=== PATIENT | female | born 1990 | race Two or more races ===

== ENCOUNTER 2017-03-15 19:59 | Emergency (ER) | payer BC ==
[2017-03-15] MEDS: 0.9 % SODIUM CHLORIDE 1,000 ML IV ONE (20:50)
[2017-03-15] MEDS ORDERED: 0.9 % SODIUM CHLORIDE 1,000 ML IV ONE (20:53)
[2017-03-15 20:57] LABS: BASOPHILS % 0.5 (0.0-1.5); EOSINOPHILS % 3.8 % (0.0-6.8); MEAN CORPUSCULAR VOLUME 93.5 fl (80.0-100.0); MONOCYTES % 3.9 % (0.0-11.0); NEUTROPHILS # 2.2 # k/uL (1.4-7.7)
[2017-03-15 21:00] LABS: eGFR (African) > 60; eGFR (Non-African) > 60
--- NOTE | 2017-03-15 21:55 | ED Physician Documentation ---
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 - ROS CONST: weakness EYES/ENT: none CVS/RESP: none GI/: nausea - PAST HX Past History: other (BPD, opiate dependence) Allergies/Adverse Reactions: Allergies Allergy/AdvReac Type Severity Reaction Status Date / Time No Known Allergies Allergy Verified 03/15/17 20:46 Home Medications: Ambulatory Orders Medication Instructions Recorded Aripiprazole [Abilify] 5 mg PO QDAY 03/15/17 Cyclobenzaprine HCl [Flexeril] 10 mg PO TID 03/15/17 Duloxetine HCl [Cymbalta] 20 mg PO QDAY 03/15/17 Hydroxyzine Pamoate [Vistaril] 50 mg PO TID 03/15/17 Lidocaine [Lidoderm] 1 patch TOP Q12 03/15/17 Mirtazapine [Remeron] 30 mg PO QDAY 03/15/17 Naltrexone HCl [Revia] 50 mg PO QDAY 03/15/17 - SOCIAL HX Smoking History: cigarettes Drug Use: other (opiates, marijuana, says she has tried all) - FAMILY HX Family History: No - VITAL SIGNS Vital Signs: Vital Signs Temp Pulse Resp BP Pulse Ox 98.2 F 83 16 95/55 99 03/15/17 20:00 03/15/17 20:00 03/15/17 20:00 03/15/17 20:00 03/15/17 20:00 - REVIEWED ASSESSMENTS Nursing Assessment Reviewed: Yes Vitals Reviewed: Yes Progress - Progress Progress: 1L NS, bolus 2150, says she feels better, ready to go home ED Results Lab/Radiology - Lab Results Lab Results: Lab Results 03/15/17 03/15/17 20:42 20:42 WBC 5.30 K/ul K/ul (4.00-12.00) RBC 4.16 M/ul M/ul (3.90-5.20) Hgb 13.3 g/dL g/dL (12.0-16.0) Hct 38.9 % % (34.5-46.5) MCV 93.5 fl fl (80.0-100.0) MCH 32.0 pg pg (28.0-34.0) MCHC 34.2 g/dL g/dL (30.0-36.0) RDW 12.7 % % (11.3-14.3) Plt Count 212 K/mm3 K/mm3 (130-400) Neut % (Auto) 41.3 % % (39.0-79.0) Lymph % (Auto) 49.0 % % (16.0-50.0) [place] % (Auto) 3.9 % % (0.0-11.0) Eos % (Auto) 3.8 % % (0.0-6.8) Baso % (Auto) 0.5 (0.0-1.5) Neut # (Auto) 2.2 # k/uL # k/uL (1.4-7.7) Lymph # (Auto) 2.6 # k/uL # k/uL (0.6-4.0) [place] # (Auto) 0.2 # k/uL # k/uL (0.0-0.9) Eos # (Auto) 0.2 # k/uL # k/uL (0.0-0.6) Baso # (Auto) 0.0 # k/uL # k/uL (0.0-0.5) Reactive Lymphs % 1.5 % % (0.0-5.0) Reactive Lymphs # 0.1 # k/uL # k/uL (0.0-0.8) Sodium 138 mmol/L mmol/L (136-145) Potassium 3.4 mmol/L L mmol/L (3.5-5.0) Chloride 106 mmol/L mmol/L (98-110) Carbon Dioxide 30 mmol/L mmol/L (20-32) BUN 7 mg/dL L mg/dL (10-26) Creatinine 0.7 mg/dL mg/dL (0.4-1.5) Estimated Creat Clear 172 Est GFR ( Amer) > 60 (60 - ) Est GFR (Non-Af Amer) > 60 (60 - ) Glucose 81 mg/dL mg/dL (70-99) Calcium 8.8 mg/dL mg/dL (8.5-10.5) Total Bilirubin 0.3 mg/dL mg/dL (0.2-1.2) AST 16 U/L U/L (0-41) ALT 13 U/L U/L (0-45) Alkaline Phosphatase 63 U/L U/L (46-116) Total Protein 7.0 g/dL g/dL (6.0-8.5) Albumin 3.9 g/dL g/dL (3.0-5.5) - Orders Orders: ED Orders Category Date Time Status CBC/PLATELET/DIFF Routine Lab 03/15/17 20:42 Completed CMP [CMP] Routine Lab 03/15/17 20:42 Completed 0.9 % Sodium Chloride [Normal Saline] 1,000 ml Med 03/15/17 20:53 Discontinued IV .STK-MED General Adult Physical Exam - PHYSICAL EXAM GENERAL APPEARANCE: mild distress EENT: eye inspection normal, ENT inspection normal NECK: supple RESPIRATORY: no resp distress, breath sounds normal CVS: reg rate & rhythm ABDOMEN: soft, normal bowel sounds RECTAL: deferred BACK: other (movements w/o pain) SKIN: warm/dry, normal color EXTREMITIES: no evidence of injury NEURO: CN's nml as tested, motor nml, sensation nml Discharge Clincal Impression: Nausea Referrals: Primary Doctor,No [Primary Care Provider] - 2 Days Home Medications: Ambulatory Orders Aripiprazole [Abilify] 5 mg PO QDAY 03/15/17 Cyclobenzaprine HCl [Flexeril] 10 mg PO TID 03/15/17 Duloxetine HCl [Cymbalta] 20 mg PO QDAY 03/15/17 Hydroxyzine Pamoate [Vistaril] 50 mg PO TID 03/15/17 Lidocaine [Lidoderm] 1 patch TOP Q12 03/15/17 Mirtazapine [Remeron] 30 mg PO QDAY 03/15/17 Naltrexone HCl [Revia] 50 mg PO QDAY 03/15/17 Condition: Good Disposition: 01 HOME, SELF-CARE Decision to Admit: NO Decision Time: 21:50
[2017-03-15 22:14] VITALS: BP 93/49
== END 2017-03-15 22:10 | disposition home or self-care (01) ==
LOC: ED 19:59
DX: R11.0 Nausea (principal)
CPT/HCPCS: 80053; 85025; J7030; 96360; 99283; S1016